=== PATIENT | female | born 1950 | race Caucasian/White ===

== ENCOUNTER 2019-02-17 08:39 | Emergency (ER) | payer OTHER ==
[~2019-02-17] VITALS: Ht 167.6 cm; Wt 78.0 kg
[2019-02-17 09:15] LABS: BASOPHILS ABSOLUTE AUTO 0.05 K/mm3 (0.00-0.23); BASOPHILS PERCENT AUTO 1 % (0-2); EOSINOPHILS ABSOLUTE AUTO 0.08 K/mm3 (0.00-0.68); EOSINOPHILS PERCENT AUTO 1 % (0-6); Hematocrit 44.7 % (33.0-51.0); Hemoglobin 15.2 g/dL (11.5-16.0); IMMATURE GRAN ABSOLUTE AUTO 0.01 K/mm3 (0.00-0.10); IMMATURE GRAN PERCENT AUTO 0 % (0-1); LYMPHOCYTES ABSOLUTE AUTO 2.24 K/mm3 (0.84-5.20); LYMPHOCYTES PERCENT AUTO 34 % (21-46); MONOCYTES ABSOLUTE AUTO 0.44 K/mm3 (0.16-1.47); MONOCYTES PERCENT AUTO 7 % (4-13); Mean Corpuscular HGB 31.7 pg (26.0-34.0); Mean Corpuscular Volume 93 fL (80-100); Mean Platelet Volume 10.4 fL (9.1-12.4); NEUTROPHILS ABSOLUTE AUTO 3.74 K/mm3 (1.96-9.15); NEUTROPHILS PERCENT AUTO 57 % (41-73); Platelet Count 192 K/mm3 (150-400); RDW Coefficient Variation 12.8 % (11.7-14.2); RDW Standard Deviation 43.9 fL (35.1-46.3); White Blood Cell Count 6.56 K/mm3 (4.00-11.30)
[2019-02-17 09:36] LABS: Chloride, Blood 107 mmol/L (98-108); Potassium, Blood 3.9 mmol/L (3.5-5.5); Sodium, Blood 140 mmol/L (136-145)
[2019-02-17 09:37] LABS: Albumin, Blood 3.8 g/dL (3.4-5.0); Albumin/Globulin Ratio 1.2 (0.8-1.8); Anion Gap 6 mmol/L (6-16); Blood Urea Nitrogen 8 mg/dL (8-24); Bun/Creatinine Ratio 15.1 (12.0-20.0); CO2, Blood 27 mmol/L (21-32); Calcium, Blood 8.4 mg/dL (8.5-10.1); Creatinine, Blood 0.53 mg/dL (0.40-1.00); Globulin, Blood 3.2 g/dL (2.2-4.0); Glomerular Filtration Rate >60 (60-); Glucose, Blood 95 mg/dL (70-99)
[2019-02-17 09:38] LABS: Alanine Aminotransfer (ALT/SGP 14 U/L (12-78); Alk Phos 91 U/L (50-136); Aspartate Aminotrans (AST/SGOT 23 U/L (12-37); Bilirubin, Total 0.6 mg/dL (0.1-1.0); Troponin I <0.015 ng/mL (0.000-0.040)
[2019-02-17] MEDS ORDERED: FURO20 PO (10:37)
== END 2019-02-17 11:31 | disposition home or self-care (01) ==
LOC: ER 08:39
PROVIDERS: Physician Assistant
DX: R07.9 Chest pain, unspecified (principal); F17.200 Nicotine dependence, unspecified, uncomplicated
CPT/HCPCS: 71046; 80053; 84484; 85025; 93005; 93010; 99285-25

== ENCOUNTER 2023-09-04 18:21 | Inpatient (IN) | payer OTHER ==
[~2023-09-04] VITALS: Ht 167.6 cm; Wt 65.8 kg
[~2023-09-04 18:21] MED LIST: FURO20 PO
[2023-09-04 19:14] LABS: BASOPHILS ABSOLUTE AUTO 0.03 K/mm3 (0.00-0.23); BASOPHILS PERCENT AUTO 0 % (0-2); EOSINOPHILS ABSOLUTE AUTO 0.05 K/mm3 (0.00-0.68); EOSINOPHILS PERCENT AUTO 1 % (0-6); Hemoglobin 14.6 g/dL (11.5-16.0); IMMATURE GRAN ABSOLUTE AUTO 0.02 K/mm3 (0.00-0.10); IMMATURE GRAN PERCENT AUTO 0 % (0-1); LYMPHOCYTES PERCENT AUTO 20 % (21-46); MONOCYTES ABSOLUTE AUTO 0.56 K/mm3 (0.16-1.47); MONOCYTES PERCENT AUTO 7 % (4-13); Mean Corpuscular HGB 31.4 pg (26.0-34.0); Mean Corpuscular HGB Conc 37.4 g/dL (31.5-36.5); Mean Corpuscular Volume 84 fL (80-100); Mean Platelet Volume 8.6 fL (9.1-12.4); NEUTROPHILS PERCENT AUTO 72 % (41-73); Platelet Count 280 K/mm3 (150-400); RDW Coefficient Variation 12.3 % (11.7-14.2); Red Blood Cell Count 4.65 M/mm3 (3.80-5.20); White Blood Cell Count 7.66 K/mm3 (4.00-11.30)
[2023-09-04 19:37] LABS: Albumin, Blood 3.8 g/dL (3.4-5.0); Albumin/Globulin Ratio 1.3 (0.8-1.8); Bilirubin, Total 0.8 mg/dL (0.1-1.0); Calcium, Blood 8.6 mg/dL (8.5-10.1); Creatinine, Blood 0.47 mg/dL (0.40-1.00); Potassium, Blood 3.2 mmol/L (3.5-5.5); Thyroid Stimulating Hormone 0.846 uIU/mL (0.360-4.800); Total Protein, Blood 6.8 g/dL (6.4-8.2)
[2023-09-04 19:40] LABS: Source, Urine Clean Catch
[2023-09-04 19:45] LABS: Appearance, Urine Hazy (Clear); Bilirubin, Urine Neg (Neg); Blood, Urine 1+ (Neg); Color, Urine Yellow (P-Yellow); Glucose Qualitative, Urine Neg (Neg); Ketones, Urine Neg (Neg); Leukocyte Esterase, Urine Neg (Neg); Nitrite, Urine Pos (Neg); Protein, Urine Neg (Neg); Urobilinogen, Urine NORM (Normal); pH, Urine 6.5 (5.0-8.0)
[2023-09-04 19:56] LABS: Bacteria Many /hpf; Granular Casts 0-2 /lpf (0)
[2023-09-04 19:57] LABS: Red Blood Cells, Urine 0-2 /hpf (0-2); Squamous Epithelial Cells Few /hpf (Few)
[2023-09-04 20:05] LABS: Osmolality, Urine 261 mos/kg (15-1400)
[2023-09-04] MEDS ORDERED: Acetaminophen 500 MG Tab PO ONE (20:45)
[2023-09-04] MEDS ORDERED: Potassium Chloride 20 MEQ TabCR PO ONE (20:45)
[2023-09-04 20:46] LABS: Sodium, Urine, Random 33 mmol/L (20-110)
[2023-09-04] MEDS ORDERED: NS 1,000 ML IV SCH (21:10)
[2023-09-04] MEDS ORDERED: NS 1,000 ML IV ONE (21:10)
[2023-09-04] MEDS ORDERED: Ondansetron 4 MG TAB PO PRN (21:55)
[2023-09-04] MEDS ORDERED: Acetaminophen 325 MG TABLET PO PRN (21:55)
[2023-09-04] MEDS ORDERED: NS 500 ML IV ONE (22:00)
[2023-09-04] MEDS ORDERED: Nicotine 21 MG PATCH TOP PRN (22:10)
[2023-09-04] MEDS ORDERED: ALBU90OI INH (22:31)
[2023-09-04] MEDS ORDERED: ALEN70 PO (22:32)
[2023-09-04] MEDS ORDERED: Buspirone HCl15 MG PO (22:33)
[2023-09-04] MEDS ORDERED: ZYRTEC10 M2 PO (22:34)
[2023-09-04] MEDS ORDERED: CYCL10 PO (22:34)
[2023-09-04] MEDS ORDERED: Flonase 0.05% N16 GM (22:35)
[2023-09-04] MEDS ORDERED: HYDR1TAB94 PO (22:37)
[2023-09-04] MEDS ORDERED: IBUP400 PO (22:37)
[2023-09-04] MEDS ORDERED: NICOTINE LOZENGE2 MG MM (22:38)
[2023-09-04] MEDS ORDERED: LISI20 PO (22:38)
[2023-09-04] MEDS ORDERED: Ciprofloxacin 500 MG Tab PO SCH (23:00)
[2023-09-04] MEDS ORDERED: BusPIRone HCl 10 MG Tab PO PRN (23:00)
[2023-09-04] MEDS ORDERED: HYDROcodone 5-APAP 325 TAB PO PRN (23:05)
[2023-09-04 23:09] VITALS: BP 151/73
[2023-09-04] MEDS ORDERED: Loratadine 10 MG Tab PO PRN (23:15)
[2023-09-05 02:44] LABS: Albumin, Blood 3.8 g/dL (3.4-5.0); Albumin/Globulin Ratio 1.5 (0.8-1.8); Bilirubin, Total 0.8 mg/dL (0.1-1.0); Bun/Creatinine Ratio 11.4 (12.0-20.0); Calcium, Blood 8.5 mg/dL (8.5-10.1); Creatinine, Blood 0.44 mg/dL (0.40-1.00); Globulin, Blood 2.6 g/dL (2.2-4.0); Magnesium, Blood 1.8 mg/dL (1.6-2.4); Potassium, Blood 3.3 mmol/L (3.5-5.5); Total Protein, Blood 6.4 g/dL (6.4-8.2)
[2023-09-05 02:52] LABS: BASOPHILS ABSOLUTE AUTO 0.03 K/mm3 (0.00-0.23); BASOPHILS PERCENT AUTO 1 % (0-2); EOSINOPHILS ABSOLUTE AUTO 0.06 K/mm3 (0.00-0.68); EOSINOPHILS PERCENT AUTO 1 % (0-6); Hematocrit 38.5 % (33.0-51.0); Hemoglobin 14.2 g/dL (11.5-16.0); IMMATURE GRAN ABSOLUTE AUTO 0.02 K/mm3 (0.00-0.10); IMMATURE GRAN PERCENT AUTO 0 % (0-1); LYMPHOCYTES ABSOLUTE AUTO 1.69 K/mm3 (0.84-5.20); LYMPHOCYTES PERCENT AUTO 29 % (21-46); MONOCYTES ABSOLUTE AUTO 0.43 K/mm3 (0.16-1.47); MONOCYTES PERCENT AUTO 7 % (4-13); Mean Corpuscular HGB 31.6 pg (26.0-34.0); Mean Corpuscular HGB Conc 36.9 g/dL (31.5-36.5); Mean Corpuscular Volume 86 fL (80-100); Mean Platelet Volume 8.5 fL (9.1-12.4); NEUTROPHILS ABSOLUTE AUTO 3.63 K/mm3 (1.96-9.15); NEUTROPHILS PERCENT AUTO 62 % (41-73); Platelet Count 254 K/mm3 (150-400); RDW Coefficient Variation 12.3 % (11.7-14.2); RDW Standard Deviation 38.5 fL (35.1-46.3); White Blood Cell Count 5.86 K/mm3 (4.00-11.30)
[2023-09-05 03:52] VITALS: BP 138/68
[2023-09-05] MEDS ORDERED: Albuterol 2.5 MG/3 ML VIAL INH PRN (04:25)
--- NOTE | 2023-09-05 06:21 | NUR ---
ER ADMIT Patient admitted for hyponatremia. [facility]. Potassium and sodium replacements administred in ER, NS fluids infusing. Patient alert & oriented x4. Hoarse voice noted, patient reported that shes had a hoarse voice for awhile, and asked her MD for steriods, but after taking the steriods no change in her voice. Patient independent in the room. Current smoker, nicotine patch administred. Reviewed [facility] policy, no ignition sources present. Vitals stable. Will continue plan of care.
[2023-09-05 07:52] VITALS: BP 132/82
[2023-09-05 08:41] LABS: Bun/Creatinine Ratio 11.5 (12.0-20.0); Calcium, Blood 8.5 mg/dL (8.5-10.1); Creatinine, Blood 0.35 mg/dL (0.40-1.00)
[2023-09-05] MEDS ORDERED: Docusate Sodium 100 MG Cap PO SCH (09:00)
[2023-09-05] MEDS ORDERED: Lisinopril 20 MG Tab PO SCH (09:00)
[2023-09-05] MEDS ORDERED: Fluticasone 0.05% Nasal Spray SCH (09:00)
[2023-09-05] MEDS ORDERED: Enoxaparin 40 MG/0.4 ML SYR SC SCH (09:00)
--- NOTE | 2023-09-05 09:37 | NUR ---
NOTE: FAX SENT TO [facility] FOR CHEST X-RAY REPORT. REQUESTED BY DR. LOMELI.
[2023-09-05] MEDS ORDERED: Potassium Chloride 20 MEQ TabCR PO ONE ×2 (11:00→16:50)
[2023-09-05] MEDS ORDERED: Mometasone/Formoterol MDI 200/5 mcg 13 GM INH SCH (11:10)
[2023-09-05 15:25] VITALS: BP 145/81
[2023-09-05 16:07] LABS: Bun/Creatinine Ratio 16.7 (12.0-20.0); Calcium, Blood 8.6 mg/dL (8.5-10.1); Creatinine, Blood 0.36 mg/dL (0.40-1.00); Potassium, Blood 3.2 mmol/L (3.5-5.5)
--- NOTE | 2023-09-05 18:40 | NUR ---
SHIFT SUMMARY PT AOX3-4, MORE ALERT THIS AFTERNOON. NA SLOWLY INCREASING THE SHIFT PROGRESSES. MEDICATED FOR FERRIS PER THE EMAR. NICOTINE PATCH ADMINISTERED. FAMILY AT THE BS T/O THE SHIFT. CALL LIGHT WITHIN REACH, BED LOCKED AND IN THE LOWEST POSITION. WILL REPORT TO ONCOMING NURSE.
[2023-09-05 19:22] VITALS: BP 162/86
[2023-09-05] MEDS ORDERED: GuaiFENesin 600 MG TabCR PO SCH (21:00)
[2023-09-06 00:46] VITALS: BP 128/81
[2023-09-06 04:32] VITALS: BP 147/82
--- NOTE | 2023-09-06 04:59 | NUR ---
SHIFT SUMMARY PT A&OX3 BUT STATED "BRAIN IF FOGGY" AND IT TAKES HER A MINUTE TO PROCESS WHAT THIS NURSE IS SAYING. INDEPENDENT IN ROOM. PT C/O HEADACHE DURING THE NIGHT. DECLINED OFFER OF WARM WASHCLOTH OR ICE PACK BUT WAS MEDICATED PER EMAR WITH GOOD EFFECT. PT DID NOT APPEAR TO SLEEP MUCH DURING THE NIGHT. ORAL ABX GIVEN PER EMAR. DENIED FEELING SOB. VSS. BED IN LOWEST POSITION AND CALL LIGHT IN REACH.
[2023-09-06 05:09] LABS: Hematocrit 35.8 % (33.0-51.0); Hemoglobin 13.1 g/dL (11.5-16.0); Mean Corpuscular HGB 31.6 pg (26.0-34.0); Mean Corpuscular HGB Conc 36.6 g/dL (31.5-36.5); Mean Corpuscular Volume 87 fL (80-100); Mean Platelet Volume 8.4 fL (9.1-12.4); Platelet Count 219 K/mm3 (150-400); RDW Coefficient Variation 12.3 % (11.7-14.2); RDW Standard Deviation 39.5 fL (35.1-46.3); Red Blood Cell Count 4.14 M/mm3 (3.80-5.20); White Blood Cell Count 5.03 K/mm3 (4.00-11.30)
[2023-09-06 05:55] LABS: Albumin, Blood 3.6 g/dL (3.4-5.0); Anion Gap 10 mmol/L (3-11); Blood Urea Nitrogen 2 mg/dL (8-24); Bun/Creatinine Ratio 4.8 (12.0-20.0); CO2, Blood 25 mmol/L (21-32); Calcium, Blood 8.5 mg/dL (8.5-10.1); Chloride, Blood 95 mmol/L (98-108); Creatinine, Blood 0.41 mg/dL (0.40-1.00); Glomerular Filtration Rate 105 (60-); Glucose, Blood 113 mg/dL (70-99); Magnesium, Blood 1.7 mg/dL (1.6-2.4); Phosphorus, Blood 2.4 mg/dL (2.5-4.9); Potassium, Blood 3.1 mmol/L (3.5-5.5); Sodium, Blood 127 mmol/L (136-145)
[2023-09-06] MEDS ORDERED: Potassium Chloride 20 MEQ TabCR PO ONE (07:30)
[2023-09-06 07:59] VITALS: BP 135/76
[2023-09-06 15:26] VITALS: BP 138/84
--- NOTE | 2023-09-06 17:47 | NUR ---
SHIFT SUMMARY: PT A&O X4. PLEASANT AND COOPERATIVE WITH CARE. INDEPENDENT IN ROOM. PT NA DID NOT CHANGE FROM YESTERDAY, SHOWING 127. FLUIDS D/C THIS AM. WILL RECHECKS LABS IN AM TO WATCH FOR NA DROP AND POSSIBLY BE PLACED ON FLUID RESTRICTION FOR SIADH. PT C/O SOB AND INCREASED BRAIN FOG LATE MORNING. DISCUSSED BREATHING TREATMENT NEED WITH RT. SPOKE WITH HOSPITALIST c CONCERNS FOR NA DROP LEADING TO INCREASED BRAIN FOG. PT DAUGHTER CALLED THIS RN STATING HER MOM DID NOT SOUND NORMAL WITH PHONE CALL "ALMOST LIKE SHE DID NOT RECOGNIZE ME." PT ASSESSED SHORTLY AFTER CALL APPEARING ALERT AND ORIENTED. NO LETHARGY NOTED. AWAITING CONSULT FROM DR. REES FOR ABNORMAL LUNG CT. POSSIBLE BX NEEDED. CALL LIGHT IN REACH. BED IN LOWEST POSITION.
[2023-09-06 19:50] VITALS: BP 142/81
[2023-09-07 04:04] VITALS: BP 148/82
--- NOTE | 2023-09-07 04:50 | NUR ---
SHIFT SUMMARY PT A&OX4 BUT IS SLOW AT PROCESSING INFORMATION WHEN SPOKEN TO. PT REPORTS "BRAIN FOG IS BETTER AFTER SLEEPING". PER PT'S FAMILY MEMBER THIS IS A CHANGE IN BASELINE, PT WAS NOT SLOW TO RESPOND AND HAD CLEAR MENTATION WHEN HE FIRST BROUGHT PT TO HOSPITAL. NO OTHER DEFICITS NOTED DURING ASSESSMENT. PT DID C/O OF BACK PAIN AT START OF SHIFT. HEAT PACK PROVIDED AND MEDICATED PER EMAR WITH GOOD EFFECT. VSS. BED IN LOWEST POSITION AND CALL LIGHT IN REACH.
[2023-09-07 07:53] VITALS: BP 150/81
[2023-09-07] MEDS ORDERED: Sodium Phosphate Mono/Dibasic 250 MG Tab PO ONE (08:10)
[2023-09-07] MEDS ORDERED: Potassium Chloride 20 MEQ TabCR PO ONE ×2 (08:15→11:05)
[2023-09-07] MEDS ORDERED: Lactobacil 2-S.Thermo-Bifido 1 1 Cap PO SCH (09:00)
[2023-09-07 10:15] LABS: Bun/Creatinine Ratio 8.5 (12.0-20.0); Calcium, Blood 8.7 mg/dL (8.5-10.1); Creatinine, Blood 0.35 mg/dL (0.40-1.00); Potassium, Blood 3.1 mmol/L (3.5-5.5)
[2023-09-07] MEDS ORDERED: Loperamide HCl 2 MG Cap PO PRN (11:05)
[2023-09-07 15:10] VITALS: BP 148/86
--- NOTE | 2023-09-07 18:30 | NUR ---
SHIFT SUMMARY: PT A&O X4. PLEASANT AND COOPERATIVE WITH CARE. INDEPENDENT IN ROOM. SPOKE WITH DR. REES THIS AM FOLLOW-UP WITH CONSULT. DR. REES STATED HE WOULD BE BY TODAY. SHOWED UP EARLY AFTERNOON AND HAD LONG CONVERSATION WITH PT. PLAN FOR PT TO BE NPO AFTER MIDNIGHT FOR BRONCHOSCOPY WITH BX TOMORROW. MRI SCHEDULED FOR BRAIN FOG; PT AND FAMILY WORRIED ABOUT POSSIBLE STROKE. RECEIVED CALL FROM SOFTWARE SALES EXECUTIVE STATING MRI COULD NOT BE COMPLETED UNTIL HEAD CT WAS OBTAINED FIRST. SPOKE WITH DR. VASQUEZ WHO ORDERED HEAD CT IN PLACE OF MRI. PT HAVING HARSH NONPRODUCTIVE COUGH THIS SHIFT. HOSPITALIST AWARE. 1500mL FLUID RESTRICTION IN PLACE. NA DROPPED TO 124 FROM 127. ONE TIME POTASSIUM GIVEN FOR K OF 3.1. PT C/O 4-5/10 BACK. TYLENOL AND NORCO PROVIDED. CALL LIGHT IN REACH. BED IN LOWEST POSITION.
[2023-09-07 19:25] VITALS: BP 135/82
[2023-09-08] VITALS (34 sets, daily range): BP systolic 135–204; BP diastolic 73–141
[2023-09-08 05:09] LABS: Bun/Creatinine Ratio 9.7 (12.0-20.0); Calcium, Blood 8.6 mg/dL (8.5-10.1); Creatinine, Blood 0.31 mg/dL (0.40-1.00); Potassium, Blood 3.2 mmol/L (3.5-5.5)
--- NOTE | 2023-09-08 07:56 | NUR ---
SHIFT SUMMARY PT IS A&OX4, VSS ON RA. PT STILL C/O HAVING BRAIN FOG. STATES SHE FEELS IT IS WORSE WHEN SHE IS ASKED TOO MANY QUESTIONS AT ONCE, OR IS HAVING TO THINK ABOUT TOO MANY THINGS. C/O FERRIS, MANAGED WITH 5MG PO NORCO. TOLERATING A REGULAR DIET, 1500 ML FLUID RESTRICITION. NPO EXCEPT WATER AFTER MN FOR A BRONCHOSCOPY WITH BX TODAY. UP INDEPENDENTLY IN ROOM/BR. BED IN LOWEST POSITION, CALL LIGHT WITHIN REACH. WOULD LIKE TO GO HOME AFTER PROCEDURE.
[2023-09-08 08:59] LABS: Albumin, Blood 3.6 g/dL (3.4-5.0); Anion Gap 14 mmol/L (3-11); Blood Urea Nitrogen 3 mg/dL (8-24); Bun/Creatinine Ratio 10.7 (12.0-20.0); CO2, Blood 22 mmol/L (21-32); Calcium, Blood 8.9 mg/dL (8.5-10.1); Chloride, Blood 89 mmol/L (98-108); Creatinine, Blood 0.28 mg/dL (0.40-1.00); Glomerular Filtration Rate 115 (60-); Glucose, Blood 113 mg/dL (70-99); Magnesium, Blood 1.6 mg/dL (1.6-2.4); Phosphorus, Blood 3.2 mg/dL (2.5-4.9); Potassium, Blood 3.2 mmol/L (3.5-5.5); Sodium, Blood 122 mmol/L (136-145)
[2023-09-08 09:50] LABS: Albumin, Blood 3.7 g/dL (3.4-5.0); Anion Gap 9 mmol/L (3-11); Blood Urea Nitrogen 2 mg/dL (8-24); CO2, Blood 28 mmol/L (21-32); Calcium, Blood 9.1 mg/dL (8.5-10.1); Chloride, Blood 89 mmol/L (98-108); Creatinine, Blood 0.34 mg/dL (0.40-1.00); Glomerular Filtration Rate 110 (60-); Glucose, Blood 119 mg/dL (70-99); Magnesium, Blood 1.6 mg/dL (1.6-2.4); Phosphorus, Blood 3.2 mg/dL (2.5-4.9); Potassium, Blood 3.3 mmol/L (3.5-5.5); Sodium, Blood 123 mmol/L (136-145)
[2023-09-08] MEDS ORDERED: Mag Sulfate 1 GM/D5% 100ML 100 ML IV ONE (10:00)
[2023-09-08] MEDS ORDERED: Sodium Chloride 1 GM TAB PO SCH (10:00)
[2023-09-08] MEDS ORDERED: Potassium Chloride 20 MEQ/15 ML UDC PO ONE (10:00)
[2023-09-08] MEDS ORDERED: Lactated Ringer's 1,000 ML IV SCH (12:45)
[2023-09-08] MEDS ORDERED: Lidocaine HCl 4% 5 ML SDA INH ONE (12:50)
[2023-09-08] MEDS ORDERED: EpiNEPhrine 1 MG/1 ML 1ML Vial ONE (13:21)
[2023-09-08] MEDS ORDERED: Lidocaine 2% 5 ML SDV ONE (13:21)
[2023-09-08] MEDS ORDERED: Lidocaine 2% Jelly Uro-Jet ONE (13:21)
[2023-09-08] MEDS ORDERED: propofoL 40 ML IV ONE (13:33)
[2023-09-08] MEDS ORDERED: Midazolam HCl 1MG / ML 2ML Vial ONE (13:39)
--- NOTE | 2023-09-08 14:11 | NUR ---
09/08/23 1411 Swati Richardson HISTORY, CHART, MEDICATIONS AND ALLERGIES REVIEWED BEFORE START OF PROCEDURE. PATIENT CONFIRMS NPO STATUS AND AGREES WITH SCHEDULED PROCEDURE. 3-LEAD EKG REVIEWED WITH PHYSICIAN PRIOR TO START OF PROCEDURE. MONITOR INTACT WITH CONTINUOUS PULSE OXIMETRY,CAPNOGRAPHY, 3-LEAD EKG, INTERMITTENT BP. SUPPLEMENTAL O2 TO BE TITRATED THROUGHOUT PROCEDURE TO MAINTAIN O2 SATURATION ABOVE 90%. PATIENT DETERMINED TO BE ASA APPROPRIATE FOR PROPOFOL SEDATION PRIOR TO START OF PROCEDURE BY .
[2023-09-08] MEDS ORDERED: Sodium Chloride 1 GM TAB PO ONE ×2 (17:00→21:00)
--- NOTE | 2023-09-08 19:29 | NUR ---
SHIFT SUMMARY: PT A&O X4. PLEASANT AND COOPERATIVE WITH CARE. PT NPO THIS AM FOR BRONCHOSCOPY c BX. SURGERY COMPLETED THIS AFTERNOON; TOLERATED WELL. DR. NEWMAN ARRIVED SHORTLY AFTER ARRIVAL BACK TO ROOM WITH PICTURES OF SCOPE AND SPEAK WITH PT AND DAUGHTER REGARDING FINDINGS. DR. MAYS PLACED STAT LAB ORDERS THIS AM. CALLED WITH RESULTS AND PLACED ORDERS PER TELEPHONE REQUEST. ORDERS READ BACK. PT NOW ON 1L FLUID RESTRICTION TITRATED DOWN FROM 1.5 L. 1 TIME BAG MAG SULFATE GIVEN THIS SHIFT. ONE TIME 40MEQ KCL GIVEN. STAT NA DRAWN AT 1600. CALLED DR. MAYS WITH RESULT OF 124 INCREASED FROM AM OF 123. ORDER FOR EXTRA TAB SODIUM CHLORIDE GIVEN FOR 1700 AND 2100 DOSE. ORDER EXPLAINED TO ONCOMING RN. CALL LIGHT IN REACH. BED IN LOWEST POSITION.
[2023-09-09 04:27] VITALS: BP 136/76
[2023-09-09 05:32] LABS: Hematocrit 35.7 % (33.0-51.0); Hemoglobin 13.3 g/dL (11.5-16.0)
[2023-09-09 06:06] LABS: Albumin, Blood 3.5 g/dL (3.4-5.0); Anion Gap 8 mmol/L (3-11); Blood Urea Nitrogen 4 mg/dL (8-24); Bun/Creatinine Ratio 11.1 (12.0-20.0); CO2, Blood 26 mmol/L (21-32); Calcium, Blood 8.7 mg/dL (8.5-10.1); Chloride, Blood 99 mmol/L (98-108); Creatinine, Blood 0.36 mg/dL (0.40-1.00); Glomerular Filtration Rate 108 (60-); Glucose, Blood 113 mg/dL (70-99); Phosphorus, Blood 3.3 mg/dL (2.5-4.9); Potassium, Blood 3.5 mmol/L (3.5-5.5); Sodium, Blood 129 mmol/L (136-145); Thyroid Stimulating Hormone 0.947 uIU/mL (0.360-4.800); Uric Acid, Blood 1.6 mg/dL (2.6-6.0)
--- NOTE | 2023-09-09 07:36 | NUR ---
SHIFT SUMMARY PT HAD A BETTER NIGHT. NO ACUTE CHANGES OR EVENTS THIS SHIFT. VSS ON RA. MENTALLY MORE CLEAR, NO C/O BRAIN FOG. C/O FERRIS ONCE, MEDICATED WITH 5 MG NORCO, WAS TOO SOON TO HAVE TYLENOL. UP AD RAMESH IN ROOM/BR INDEPENDENTLY. BED IN LOWEST POSITION, CALL LIGHT WITHIN REACH. IS LOOKING FORWARD TO GOING HOME TODAY.
[2023-09-09 08:12] VITALS: BP 162/85
[2023-09-09] MEDS ORDERED: SODCHL1 PO (11:55)
[2023-09-09] MEDS ORDERED: DULERA 100 MCG/13 GM INH (11:55)
== END 2023-09-09 13:30 | disposition home or self-care (01) | DRG 166 ==
LOC: ER 18:21 → MEDS 18:22 → ENPENDDIS 09-09 10:20 → MEDS 09-09 13:30
PROVIDERS: Emergency Medicine; Family Medicine; Internal Medicine; Internal Medicine Critical Care Medicine; Internal Medicine Nephrology; ADMIT Student in an Organized Health Care Education/Training Program
PROC: 0B9G8ZX Drainage of Left Upper Lung Lobe, Via Natural or Artificial Opening Endoscopic, Diagnostic (ICD-10-PCS; principal; 2023-09-08 12:30)
PROC: 0BBL8ZX Excision of Left Lung, Via Natural or Artificial Opening Endoscopic, Diagnostic (ICD-10-PCS; 2023-09-08 12:30)
DX: C34.12 Malignant neoplasm of upper lobe, left bronchus or lung (principal); G93.41 Metabolic encephalopathy; E22.2 Syndrome of inappropriate secretion of antidiuretic hormone; N39.0 Urinary tract infection, site not specified; R47.01 Aphasia; Z66 Do not resuscitate; I10 Essential (primary) hypertension; E87.6 Hypokalemia; K74.60 Unspecified cirrhosis of liver; B19.20 Unspecified viral hepatitis C without hepatic coma; F17.210 Nicotine dependence, cigarettes, uncomplicated; F43.10 Post-traumatic stress disorder, unspecified; G43.909 Migraine, unspecified, not intractable, without status migrainosus; F41.9 Anxiety disorder, unspecified; Z90.89 Acquired absence of other organs; Z98.890 Other specified postprocedural states; Z90.710 Acquired absence of both cervix and uterus; Z90.6 Acquired absence of other parts of urinary tract; Z90.49 Acquired absence of other specified parts of digestive tract; Z79.01 Long term (current) use of anticoagulants; Z91.041 Radiographic dye allergy status
CPT/HCPCS: 36415; 70450; 71250; 80048; 80053; 80069; 81001; 82533; 83735; 83930; 83935; 84295; 84300; 84443; 84550; 85014; 85018; 85025; 85027; 87086; 88104; 88305; 88341; 88342; 93005; 93010; 94640; 94664; 94760; 96360; 96361; 96372; 99284-25; A9270; G0378; J0171; J1650; J2001; J2250; J2704; J3475; J7030; J7040; J7120